=== PATIENT | male | born 1990 | race Caucasian/White ===

== ENCOUNTER 2021-08-30 10:02 | Outpatient (CLI) | payer OTHER ==
--- NOTE | 2021-08-30 11:41 | XRay Report ---
CHEST 2 VIEWS INDICATION: TO RULE OUT ACTIVE TB INFECTION. COMPARISON: None FINDINGS: SUPPORT DEVICES: None. HEART: Within normal limits. LUNGS/PLEURA: Suboptimal inspiratory effort with bibasilar vascular crowding. Cannot exclude superimp osed bibasilar airspace disease, including any underlying tuberculosis which otherwise presents as no nspecific findings on chest x-ray. No pneumothorax. ADDITIONAL FINDINGS: None. IMPRESSION: 1. Lung findings as above. Signer Name: Jose Kirk MD Signed: 08/30/2021 11:36 AM Workstation Name: [id number]
== END 2021-08-30 10:03 | disposition home or self-care (01) ==
LOC: XRAY 10:02
PROVIDERS: ATTEND Internal Medicine
DX: Z11.1 Encounter for screening for respiratory tuberculosis (principal)
CPT/HCPCS: 71046